=== PATIENT | female | born 1980 | race Caucasian/White ===

== ENCOUNTER 2021-12-08 12:48 | Emergency (ER) | payer MEDICAID ==
[~2021-12-08] VITALS: Ht 154.9 cm; Wt 85.0 kg
[2021-12-08] MEDS ORDERED: HYDROCODONE/ACETAMINOPHEN 5/325MG TABLET PO ONE (14:00)
[2021-12-08] MEDS ORDERED: HYDROCODONE/ACETAMINOPHEN 5/325MG TABLET PO NR (15:15)
[2021-12-08] MEDS ORDERED: IBUP-2029 MT (17:43)
[2021-12-08] MEDS ORDERED: HYDR-4001 MT (17:43)
[2021-12-08 17:55] VITALS: BP 133/81
== END 2021-12-08 17:55 | disposition home or self-care (01) ==
LOC: ER 13:18
DX: S70.01XA Contusion of right hip, initial encounter (principal); W18.39XA Other fall on same level, initial encounter; Y93.89 Activity, other specified; Y92.89 Other specified places as the place of occurrence of the external cause; Y99.8 Other external cause status; M79.641 Pain in right hand; M79.18 Myalgia, other site
CPT/HCPCS: 73030; 73130; 73502; 81025; 99284